=== PATIENT | female | born 1955 | race Hispanic/Latino ===

== ENCOUNTER → 2019-10-22 | Outpatient (CLI) | payer MEDICARE | END | disposition home or self-care (01) | LOC: RAH 10:49 | PROVIDERS: ATTEND Internal Medicine Gastroenterology | DX: R10.10 Upper abdominal pain, unspecified (principal) | CPT/HCPCS: 78264; A9541 ==

== ENCOUNTER → 2023-10-18 | Outpatient (CLI) | payer OTHER | END | disposition home or self-care (01) | LOC: RAH 10:26 | PROVIDERS: ATTEND Internal Medicine Cardiovascular Disease | DX: Z13.6 Encounter for screening for cardiovascular disorders (principal) | CPT/HCPCS: 75571 ==

== ENCOUNTER → 2024-02-06 | Outpatient (CLI) | payer MEDICARE ==
[2024-02-06] MEDS: REGADENOSON 0.4 MG/5 ML PF SYG IVP ONE (14:11)
== END | disposition home or self-care (01) ==
LOC: SHCH 09:02
PROVIDERS: ATTEND Internal Medicine Cardiovascular Disease
DX: I25.10 Atherosclerotic heart disease of native coronary artery without angina pectoris (principal)
CPT/HCPCS: 78452; 96374; 93017; J2785; A9500 ×2

== ENCOUNTER → 2024-07-27 | Outpatient (CLI) | payer MEDICARE | END | disposition home or self-care (01) | LOC: RAH 10:04 | PROVIDERS: ATTEND Family Medicine | DX: H91.91 Unspecified hearing loss, right ear (principal) | CPT/HCPCS: 70450 ==

== ENCOUNTER → 2024-12-04 | Outpatient (CLI) | payer MEDICARE ==
--- NOTE | 2024-12-05 17:43 | HMCSR ---
APPROVED REPORT EXAM: Two-dimensional and M-mode echocardiogram with Doppler and color Doppler. INDICATION ICD: R01.1 Cardiac murmur, unspecified 2D Dimensions RVDd3.8 cmLVEF(%)58.2 (>50%)LVED Vol(simp.)81.0 mL IVSd1.0 (0.7-1.1cm)FS(%)31 %LVES Vol(simp.)39.0 mL LVDd4.7 (3.8-5.6cm)Ao Root(2D)3.1 (2.0-3.7cm)LVEF(%, simp.)52 % PWd0.9 (0.7-1.1cm)LVOT diam1.9 (1.8-2.4cm)LA ESV INDEX (BP)28.08 mL/m2 LVDs3.3 (2.5-4.0cm) Aortic Valve AoV Vmax1.1 m/[place] Peak GR5.3 mmHgLVOT Vmax0.8 m/s AoV VTI0.3 mAo Mean GR3.0 mmHgLVOT VTI0.24 m ROYAL (VMAX)2.1 cm2AVA (VTI) 2.1 cm2 Mitral Valve MV E Vmax84.7 cm/sDECEL Ekvm216 ms MV A Vmax96.7 cm/sP 1/2 T70 ms E/A ratio0.9MVA (PHT)3.2 cm2 MR Max PG39 mmHg TDI E/E' Rcyopw84.9E/E' Qlkyaog16.1 Pulmonary Valve PV Vmax0.9 m/sPV VTI0.25 mPV Mean GR2 mmHg PV Peak GR3.2 mmHg Left Ventricle The left ventricle structure and function is normal. There is normal left ventricular wall thickness. LVEF is 50-55%. Indeterminate diastolic dysfunction. Right Ventricle The right ventricle is normal size. The right ventricular systolic function is normal. Atria The left atrium size is normal. The right atrium size is normal. Aortic Valve Aortic valve is trileaflet. Aortic valve leaflets are sclerotic but open well. Trace aortic regurgita tion. There is no aortic valvular stenosis. Mitral Valve Mitral valve leaflets are mildly sclerotic but open well. Mitral regurgitation is trace. There is no mitral valve stenosis. Tricuspid Valve The tricuspid valve leaflets appear normal. There is trace tricuspid regurgitation. Pulmonic Valve The pulmonic valve leaflets are thin and pliable; valve motion is normal. There is trace pulmonic jon vular regurgitation. Great Vessels The aortic root is normal in size. IVC is not well visualized. Pericardium No pericardial effusion. Conclusion LVEF is 50-55%.
== END | disposition home or self-care (01) ==
LOC: SHCH 07:56
PROVIDERS: ATTEND Internal Medicine Cardiovascular Disease
DX: I08.0 Rheumatic disorders of both mitral and aortic valves (principal); R01.1 Cardiac murmur, unspecified
CPT/HCPCS: 93306

== ENCOUNTER 2025-04-14 20:44 | Emergency (ER) | payer MEDICARE ==
[~2025-04-14] VITALS: Ht 157.5 cm; Wt 81.6 kg
--- NOTE | 2025-04-14 20:55 | NUR ---
PT ARRIVED TO ED VIA EMS WITH A MIDLINE CATHETER IN THE LEFT UPPER EXTREMITY. NO SIGNS OF REDNESS, SWELLING, DRAINAGE, OR INFILTRATION NOTED. MIDLINE PATENT AND INTACT. NO COMPLAINTS OF PAIN OR DISCOMFORT REPORTED AT THIS TIME.
--- NOTE | 2025-04-14 20:55 | NUR ---
PT PLACED IN ED ROOM 12 AT THIS TIME
--- NOTE | 2025-04-14 22:14 | ERN ---
General Chief Complaint: Abnormal Labs Stated Complaint: LOW HGB FROM [facility] FOR BLOOD TRANSFUSION Time Seen by MD: 20:57 History of Present Illness Initial Comments 69-year-old female sent from a rehab facility to the emergency room here for an abnormal lab. The lab per of the patient is most likely a low hemoglobin value. Unfortunately no paperwork was sent over with the patient describing the reason for the transfer and no labs but reported either. Patient's past medical history includes hypertension hyperlipidemia and diabetes. She was admitted to a hospital recently because of sudden incomplete renal failure. While there she has vague memories of feeling sick and she knows she was transferred to an intensive care unit and then discharge to the rehab facility. She has no memories of her time in the intensive care unit and does not know why she was in the intensive care unit. She has a new Port-A-Cath in her right subclavian vein and she has desquamating her palmar and dorsal skin of her right hand. She relates it to an IV infiltration possibly associated with her ICU stay but she is not sure. Patient also has a sacral decubitus ulcer. Timing/Duration: 24 hours Severity: mild Allergies: Coded Allergies: No Known Drug Allergies (Unverified Allergy, Unknown, 04/14/25) Past Medical History Past Medical History: Diabetes-Type II, High Cholesterol, Hypertension, Hypothyroid, Liver Disease, Pneumonia, Renal Failure, UTI Past Surgical History: None Physical Exam General Appearance: (+) mild distress Orientation: (+) alert, (+) oriented x 3 Head/Face Trauma: No Eye: bilateral eye normal inspection, bilateral eye PERRL, bilateral eye EOMI Ear, Nose, Throat: (+) hearing grossly normal, (+) normal ENT inspection, (+) moist mucous membraine Neck: (+) normal inspection, (+) supple, (+) full range of motion, (+) no JVD Respiratory: (+) chest non-tender, (+) lungs clear, (+) well ventilated Heart: (+) regular, (+) no gallop Vascular: (+) edema Vascular Comment Pretibial edema plus two on the right only Gastrointestinal: (+) soft, (+) non-tender, (+) bowel sound present Results Laboratory and Microbiology Lab and Micro Result Laboratory Tests Test 04/14/25 22:16 04/15/25 01:43 04/15/25 03:36 04/15/25 05:10 White Blood Count 4.6 K/uL (4.8-10.8) L 4.1 K/uL (4.8-10.8) L Red Blood Count 2.27 MIL/uL (4.00-5.50) L 2.58 MIL/uL (4.00-5.50) L Hemoglobin 7.0 g/dL (12.0-16.0) *L 8.0 g/dL (12.0-16.0) L Hematocrit 21.9 % (36-48) L 24.2 % (36-48) L Mean Corpuscular Volume 96.5 fL (79-99) 93.8 fL (79-99) Mean Corpuscular Hemoglobin 30.8 pg (27.0-33.0) 31.0 pg (27.0-33.0) Mean Corpuscular Hemoglobin Concent 32.0 g/dL (32.0-36.0) 33.1 g/dL (32.0-36.0) Red Cell Distribution Width 16.3 % (11.0-15.5) H 15.6 % (11.0-15.5) H Platelet Count 133 K/uL (130-400) 127 K/uL (130-400) L Mean Platelet Volume 9.2 fL (7.5-10.5) 9.0 fL (7.5-10.5) Immature Granulocyte % (Auto) 0.2 % (0-1) Neutrophils (%) (Auto) 66.4 % (40.0-77.0) Lymphocytes (%) (Auto) 21.6 % (21.0-51.0) Monocytes (%) (Auto) 7.9 % (3.0-13.0) Eosinophils (%) (Auto) 2.4 % (0.0-8.0) Basophils (%) (Auto) 1.5 % (0.0-5.0) Neutrophils # (Auto) 3.0 K/uL (1.8-7.7) Lymphocytes # (Auto) 1.0 K/uL (1.0-4.8) Monocytes # (Auto) 0.4 K/uL (0.1-1.0) Eosinophils # (Auto) 0.11 K/uL (0.00-0.70) Basophils # (Auto) 0.07 K/uL (0.00-0.20) Absolute Immature Granulocyte (auto 0.01 K/uL (0-1) Nucleated Red Blood Cells 0.0 % (0.0-0.19) 0.0 % (0.0-0.19) Reticulocyte Count (auto) 2.88493 % (0.42-2.23) H Immature Reticulocyte Fraction 2.60 % (0.18-0.48) H Sodium Level 147 mmol/L (136-145) H Potassium Level 3.4 mmol/L (3.5-5.1) L Chloride Level 106 mmol/L (101-111) Carbon Dioxide Level 31 mmol/L (21-32) Blood Urea Nitrogen 33 mg/dL (7-18) H Creatinine 2.9 mg/dL (0.5-1.0) H Glomerular Filtration Rate Calc 17 mL/min (>90) Random Glucose 87 mg/dL (70-105) Total Calcium 9.1 mg/dL (8.5-10.1) Iron Level 84 mcg/dL (50-170) Total Iron Binding Capacity 159 mcg/dL (250-450) L Percent Iron Saturation 52.8 % (22-44) H Total Bilirubin 0.4 mg/dL (0.2-1.0) Aspartate Amino Transf (AST/SGOT) 36 U/L (10-37) Alanine Aminotransferase (ALT/SGPT) 42 U/L (12-78) Alkaline Phosphatase 106 U/L (50-136) Total Protein 5.2 g/dL (6.0-8.3) L Albumin 2.1 g/dL (3.5-5.0) L Whole Blood Glucose 61 MG/DL (70-110) L 127 MG/DL (70-110) #H MDM MDM: Differential diagnosis: Given the patient's lack of knowledge of what happened to her during her hospitalization and lack of information provided by the rehab facility I really have no clear differential diagnosis. I will start with a complete metabolic panel and a CBC, iron panel, reticulocyte count type and cross. Rationale: Tests considered and ordered secondary to shared decision making include: Previous outside records reviewed: Old ER visits. Risk of complication and/or morbidity or mortality of patient management: None Medications-Per medication reconciliation Need for hospitalization: Patient does meet criteria for hospitalization. Need for emergency major/minor surgery: No There are no social concerns with this patient. Prescription drug management Prescriptions will include symptomatic care Patient's prior external medical records from other ER visits were reviewed by me as indicated. Prior testing and results from previous visits were reviewed. Prior tests were taken into account with medical decision making and resource utilization, independent historian/historians were used to obtain complete medical history. I independently interpreted the test that were performed, results were reviewed by me and considered findings on radiology if ordered. Patient's CBC shows a low white cell count at 4.6 and hemoglobin of 7. Reticulocyte count was 2.86 and immature reticulocyte fraction was 2.6. This indicates that the patient is active the trying to make red blood cells. Patient's iron levels are good with an iron saturation of 53% serum iron 84. Therefore given erythropoietin patient will start making red blood cells and maybe able to avoid transfusions in the future. Chemistry panel showed a potassium of 3.4. I will not replete her potassium as transfuse blood has high quantities of free potassium. We transfuse the patient 1 unit of packed red blood cells and her hemoglobin was 8.0. She responded appropriately. I will discharge her home. ED Course Orders Procedure Category Date Status Time Comprehensive LAB 04/14/25 Complete Metabolic Panel 22:01 Cbc With Differential LAB 04/14/25 Complete 22:01 Type And Screen BBK 04/14/25 In Process 22:01 Consent For CPOE 04/14/25 Transmitted Transfusion 22:01 Iron Panel With %Sat LAB 04/14/25 Complete 22:14 Reticulocyte Count LAB 04/14/25 Complete Automated 22:14 Rbc-No Active Bleeding BBK 04/14/25 In Process 22:32 Rbc-No Active Bleeding BBK 04/14/25 In Process 22:33 Dextrose 50%-Water PHA 04/15/25 Complete (D50w) 02:00 Cbc Without LAB 04/15/25 Complete Differential 04:56 Current Medications Medications (Trade) Dose Ordered Sig/Pamela Route PRN Reason Start Time Stop Time Status Last Admin Dose Admin Dextrose (D50w) 50 ml ONCE ONCE IV 04/15/25 02:00 04/15/25 02:01 DC 04/15/25 02:31 Vital Signs Date Time Temp Pulse Resp B/P (MAP) Pulse Ox O2 Delivery O2 Flow Rate FiO2 04/15/25 03:27 73 14 144/52 98 Room Air* 0 04/15/25 02:00 97.9 80 18 140/54 97 Room Air* 0 04/15/25 01:45 80 15 139/54 96 Room Air* 0 04/15/25 00:30 82 16 141/52 96 Room Air* 0 04/14/25 23:25 84 16 135/53 97 Room Air* 0 04/14/25 22:45 87 14 144/48 97 Room Air* 0 04/14/25 21:13 98.4 88 16 132/49 97 Room Air* 0 04/14/25 20:45 98.8 94 16 127/62 97 Room Air 0 DX & DISP Disposition: Discharge Departure Impression: Primary Impression: Anemia Condition: Stable Additional Instructions: You were sent to the emergency room for a stat transfusion of blood as your red blood cell count was low. You have responded appropriately to 1 unit of blood transfused. While you were here I checked your iron levels and you reticulocyte counts and I saw that your iron levels were adequate and that your reticulocyte counts were normal. You should respond to erythropoietin. I make that recommendation so that you can start synthesizing your own blood more efficiently an not need transfusions in the future. Referrals: HIMANSHU GARCIA DO (PCP) SHAHLA MORENO MD Apr 14, 2025 22:14
[2025-04-14 22:26] LABS: IMMATURE GRANULOCYTE ABSOLUTE 0.01 K/uL (0-1); NUCLEATED RED BLOOD CELLS 0.0 % (0.0-0.19); PLATELET COUNT (AUTO) 133 K/uL (130-400); RED BLOOD CELL COUNT(AUTO) 2.27 MIL/uL (4.00-5.50); RED CELL DISTRIBUTION WIDTH 16.3 % (11.0-15.5); WHITE BLOOD COUNT (AUTO) 4.6 K/uL (4.8-10.8)
[2025-04-14 22:37] LABS: CREATININE 2.9 mg/dL (0.5-1.0); GLOMERULAR FILTR. RATE CALC 17.0 mL/min (>90); GLUCOSE,RANDOM 87.0 mg/dL (70-105); SODIUM SERUM 147.0 mmol/L (136-145); UREA NITROGEN, BLOOD 33.0 mg/dL (7-18)
[2025-04-14 22:39] LABS: % IRON SATURATION 52.8 % (22-44); IRON, SERUM 84.0 mcg/dL (50-170)
[2025-04-14 22:42] LABS: ASPARTATE AMINOTRANSFERASE 36.0 U/L (10-37); TOTAL PROTEIN, SERUM 5.2 g/dL (6.0-8.3)
[2025-04-15] MEDS: DEXTROSE 50%-WATER 50 ML DISP.SYRIN IV ONE (02:31)
--- NOTE | 2025-04-15 05:00 | NUR ---
SKIN BREAKDOWN NOTED DURING BRIEF CHANGE REQUESTED BY PT. SKIN BREAKDOWN OBSERVED LOCATED IN BUTTOCKS AREA. SKIN APPEARS RED AND OPEN. PT REPORTS PAIN TO AFFECTED AREA. NO FOUL SMELL. DUODERM APPLIED BY ED RN TO SITE AND CLEAN BRIEF PLACED. PT TOLERATED CARE WELL.
[2025-04-15 05:17] LABS: NUCLEATED RED BLOOD CELLS 0.0 % (0.0-0.19); PLATELET COUNT (AUTO) 127.0 K/uL (130-400); RED BLOOD CELL COUNT(AUTO) 2.58 MIL/uL (4.00-5.50); RED CELL DISTRIBUTION WIDTH 15.6 % (11.0-15.5); WHITE BLOOD COUNT (AUTO) 4.1 K/uL (4.8-10.8)
--- NOTE | 2025-04-15 05:33 | NUR ---
ED RN SPOKE TO HARESH SHEPHERD ABOUT UPDATE ON PT AT THIS TIME.
--- NOTE | 2025-04-15 05:50 | NUR ---
[facility] CONTACTED FOR TRANSFER BACK TO [facility]
--- NOTE | 2025-04-15 06:09 | NUR ---
REPORT GIVEN TO KAM YANEZ AT [facility] ABOUT PT BEING TRANSPORTED BY EMS BACK TO FACILITY.
--- NOTE | 2025-04-15 06:10 | NUR ---
EMS AT BEDSIDE FOR PT
[2025-04-15 06:14] VITALS: BP 134/52; PULSE 75; RESP 16; TEMP 97.8; O2SAT 97
--- NOTE | 2025-04-15 06:15 | NUR ---
EMS LEFT ROOM ED 12 AT THIS TIME WITH PATIENT.
== END 2025-04-15 06:17 ==
LOC: EDH 20:44
DX: D64.9 Anemia, unspecified (principal); E03.9 Hypothyroidism, unspecified; E11.9 Type 2 diabetes mellitus without complications; E78.00 Pure hypercholesterolemia, unspecified; I10 Essential (primary) hypertension; Z79.899 Other long term (current) drug therapy
CPT/HCPCS: 99285; 36430; 83540; 83550; 80053; 85025; 85045; 86850; 86900; 86901; 86923; 82948 ×2; 36415 ×2; 85027; 96374; P9016; J7070